=== PATIENT | male | born 1940 | race Caucasian/White ===

== ENCOUNTER 2017-12-07 09:00 | Inpatient (IN) | payer MEDICARE ==
[2017-12-07 11:49] LABS: Hemoglobin 14.7 g/dL (14.0-18.0); Mean Corpuscular HGB CONC 33.4 g/dL (32.0-36.0); Mean Corpuscular Volume 95.7 fl (80.0-94.0); Mean Platelet Volume 6.2 fL (7.4-10.4); Platelet Count 242 thou/uL (130-400); RBC Distribution Width 11.7 % (11.5-14.5); Red Blood Cell (RBC) Count 4.59 mill/uL (4.70-6.10); White Blood Cell (WBC) Count 8.7 thou/uL (4.8-10.8)
[2017-12-07 12:26] LABS: Anion Gap 15 mmol/L (10-20); BUN (Urea Nitrogen) 17 mg/dL (8.4-25.7); Calc. Creatinine Clearance 0 mL/min (70-130); Calcium 10.3 mg/dL (7.8-10.44); Carbon Dioxide 25 mmol/L (23-31); Chloride 101 mmol/L (98-107); Estimated GFR-MDRD 62; Glucose 131 mg/dL (83-110); Potassium 5.1 mmol/L (3.5-5.1); Sodium 136 mmol/L (136-145)
[2017-12-08] MEDS ORDERED: Albumin 5% 500 ML ONE (06:26)
[2017-12-08] MEDS ORDERED: CEFAZOLIN/Water 2 GM/20 ML SYRINGE ONE (06:27)
[2017-12-08] MEDS ORDERED: Midazolam HCl 5 mg/5 ml Vial ONE (06:30)
[2017-12-08] MEDS ORDERED: Dexmedetomidine 200 MCG/2 ML VIAL ONE (06:30)
[2017-12-08] MEDS ORDERED: Heparin 10,000 UNITS/1 ML VIAL 30,000 UNITS in Sodium Chloride 0.9% 1,000 ML FS SCH (06:30)
[2017-12-08] MEDS ORDERED: Fentanyl 100 MCG/2 ML VIAL ONE (06:30)
[2017-12-08] MEDS ORDERED: Vecuronium 10 MG VIAL ONE ×2 (06:30→15:09)
[2017-12-08] MEDS ORDERED: Insulin Regular 300 UNITS/3 ML VIAL ONE (09:09)
[2017-12-08] MEDS: Sodium Chloride 0.45% 1,000 ML IV SCH (12:00)
[2017-12-08 12:21] LABS: Actual Bicarbonate (HCO3a) 21.4 mEq/L (22-26); Base Excess (BEa) -4.6 mEq/L (0 (+/-) 2.5); CO2 Tension 42.7 mmHg (35.0-45.0); Calcium, Ionized 1.1 mmol/L (1.12-1.30); Hematocrit-ABG 34.6 % (42.0-52.0); Hemoglobin (Hb) 11.9 g/dL (14.0-18.0); O2 Tension (PaO2) 129.1 mmHg (80.0-100.0); pH, Arterial 7.32 (7.35-7.45)
[2017-12-08 12:22] LABS: ALV-art Gradient 174.025 (0-20); Puncture Site ALINE
[2017-12-08] MEDS ORDERED: Nitroglycerin 50 MG/250 ML BOT 250 ML IVPB PRN (12:24)
[2017-12-08] MEDS ORDERED: Morphine 4 MG/ML VIAL SLOW IVP PRN (12:24)
[2017-12-08] MEDS ORDERED: Promethazine HCl 25 MG/ML VIAL IM PRN (12:24)
[2017-12-08] MEDS ORDERED: Guaifenesin DM 100-10/5 ML UDCUP PO PRN (12:24)
[2017-12-08] MEDS ORDERED: Acetaminophen 325 MG TAB PO PRN (12:24)
[2017-12-08] MEDS ORDERED: Hetastarch 6% 500 ML 500 ML IVPB PRN (12:24)
[2017-12-08] MEDS ORDERED: Post-Op Insulin Drip Protocol IVPB ONE (12:24)
[2017-12-08] MEDS ORDERED: Norepinephrine 8 MG/0.9% NS 250 ML IVPB PRN (12:24)
[2017-12-08] MEDS ORDERED: Mag-Al 1200 mg/1200 mg/30 ML UDCUP PO PRN (12:24)
[2017-12-08] MEDS ORDERED: Potassium Chloride 20 MEQ/100 ML PREMIX BAG IVPB PRN (12:24)
[2017-12-08] MEDS ORDERED: Bisacodyl 10 MG SUPP PR PRN (12:24)
[2017-12-08] MEDS ORDERED: hydrALAZINE 20 MG/ML VIAL SLOW IVP PRN (12:24)
[2017-12-08] MEDS ORDERED: Bisacodyl 5 MG TAB PO PRN (12:24)
[2017-12-08] MEDS ORDERED: Fentanyl 100 MCG/2 ML VIAL SLOW IVP PRN (12:24)
[2017-12-08] MEDS ORDERED: Insulin Regular 300 UNITS/3 ML VIAL SC PRN (12:47)
[2017-12-08] MEDS ORDERED: Dextrose 5% in Water 1,000 ML IV PRN (12:47)
[2017-12-08] MEDS ORDERED: Dextrose 50% Abboject 50 ML SYRINGE SLOW IVP PRN (12:47)
[2017-12-08 12:51] LABS: #Eosinphils 0.1 thou/uL (0.0-0.7); #Lymphocytes 1.6 thou/uL (1.20-3.40); #Monocytes 0.7 thou/uL (0.11-0.59); #Neutrophils 13.2 thou/uL (1.40-6.50); %Eosinophils 0.5 % (0.0-10.0); %Lymphocytes 10.4 % (21.0-51.0); %Monocytes 4.6 % (0.0-10.0); %Neutrophils 84.6 % (42.0-75.0); Hemoglobin 11.9 g/dL (14.0-18.0); Mean Corpuscular HGB CONC 34.9 g/dL (32.0-36.0); Mean Corpuscular Hemoglobin 33.3 pg (27.0-31.0); Mean Corpuscular Volume 95.4 fl (80.0-94.0); Mean Platelet Volume 6.2 fL (7.4-10.4); Platelet Count 136 thou/uL (130-400); RBC Distribution Width 11.6 % (11.5-14.5); Red Blood Cell (RBC) Count 3.57 mill/uL (4.70-6.10); White Blood Cell (WBC) Count 15.6 thou/uL (4.8-10.8)
[2017-12-08 12:58] LABS: INR-International Normal Ratio 1.4; PTT 32.8 SEC (22.9-36.1)
[2017-12-08 13:07] LABS: Anion Gap 12 mmol/L (10-20); BUN (Urea Nitrogen) 14 mg/dL (8.4-25.7); Calc. Creatinine Clearance 98 mL/min (70-130); Calcium 7.8 mg/dL (7.8-10.44); Carbon Dioxide 19 mmol/L (23-31); Chloride 109 mmol/L (98-107); Estimated GFR-MDRD 81; Glucose 120 mg/dL (83-110); Potassium 3.7 mmol/L (3.5-5.1); Sodium 136 mmol/L (136-145)
--- NOTE | 2017-12-08 13:29 | RAD ---
SUPINE FRONTAL CHEST RADIOGRAPH: Date: 12-08-17 Comparison: 12-07-17 History: Following CABG. FINDINGS: There is a new endotracheal tube projecting over the tracheal air column in proper position. Nasogast jimena tube extends into left upper quadrant. There is a left sided chest tube and mediastinal drain in place. There is a right sided vascular catheter, distal tip overlying the cavoatrial junction. There is increased density in the left lung base suggesting volume loss. Right lung is clear. Midline sternotomy wires are noted. IMPRESSION: Lines and tubes as detailed above. Increased density is noted in the left base, likely on the basis o f volume loss. POS: [facility]
[2017-12-08 14:30] LABS: Actual Bicarbonate (HCO3a) 20.4 mEq/L (22-26); Base Excess (BEa) -4.7 mEq/L (0 (+/-) 2.5); Calcium, Ionized 1.1 mmol/L (1.12-1.30); Hematocrit-ABG 34.6 % (42.0-52.0); O2 Tension (PaO2) 134.6 mmHg (80.0-100.0); pH, Arterial 7.35 (7.35-7.45)
[2017-12-08 14:31] LABS: Puncture Site ALINE
[2017-12-08] MEDS: Fentanyl 100 MCG/2 ML VIAL SLOW IVP PRN ×2 (14:44→16:41)
--- NOTE | 2017-12-08 14:47 | OP ---
DATE OF PROCEDURE: 12/08/2017 PROCEDURE PERFORMED: Coronary artery bypass grafting x2 with left internal mammary artery to the distal LAD and reverse greater saphenous vein graft from the aorta to the first obtuse marginal. PREOPERATIVE DIAGNOSIS: Left main coronary artery disease with mildly decreased left ventricular function. POSTOPERATIVE DIAGNOSIS: Left main coronary artery disease with mildly decreased left ventricular function. SURGEON: Dr. Ronald Carrasco OPERATIONS SCHEDULER: Dr. Georgi Collins ANESTHESIA: General endotracheal anesthesia. INDICATIONS: The patient is a 77-year-old man with known coronary disease, having previously undergone stenting procedures in the distant past. He had a stress test that was positive and cardiac catheterization demonstrated about a 50% left main lesion with modest disease in his LAD and a very high grade lesion in his circumflex distal to the stent, very poor visualization of the posterolateral distribution vasculature with akinesis or severe hypokinesis in that distribution of ventriculography. He had mildly decreased LV function. He is now taken to the operating room for revascularization. FINDINGS: The pump time 60 minutes, cross clamp time 38 minutes. Good quality KEM and greater saphenous vein. The LAD distally where it was grafted was about a 1.5-2 mm vessel with diffuse plaque in the proximal and mid portion. The OM1 was about a 2-2.5 mm good quality vessel, 1 vessel was identified to the left of the great vein in the posterior descending or posterolateral distribution. It was about 1 mm poor quality vessel and no attempt was made to grafted it. The pericardium was closed. NARRATIVE REPORT: After informed consent was obtained, the patient was taken to the operating room and placed in supine position on the operating table. After the induction of general anesthesia, the patient's torso, groins and lower extremities were prepped and draped in sterile fashion. The greater saphenous vein was harvested from the left knee to groin using an endoscopic technique by my school health assistant. Meanwhile, I performed a median sternotomy. The left pleural space was entered and the left KEM was harvested as a pedicle from the level of the xiphoid, the left subclavian vein. Side branches controlled with small Hemoclips. The patient was heparinized. Mammary was ligated and divided distally. There was good flow through the mammary. Papaverine solution was instilled intraluminally. The mammary bed was inspected for hemostasis. The KEM retractors were placed with sternal retractor. The pericardium was opened and marsupialized. The aorta was palpated and was soft with double concentric pursestring of 2-0 Ethibond was placed just beyond the pericardial reflection and a single pursestring was placed in the right atrial appendage. Aortic and venous cannulae were inserted and secured by the pursestrings. The planes between the pulmonary artery and the aorta was developed. Cardiopulmonary bypass was instituted. The patient was systemically cooled. The aorta was again visually and manually inspected. The coronaries to be grafted were identified and the aortic crossclamp was applied and cardioplegia was administered through an aortic root needle. While that was infusing the left pleural drain was brought through a separate incision and secured to the skin with suture and a longitudinal slit was made in the pericardium anterior to the left phrenic nerve so the mammary pedicle could be passed. Attention was first turned to the circumflex system. The first obtuse marginal was the largest of those 3 marginals, it was exposed and opened with a [place] blade and Wilfrido scissors and reverse saphenous vein was anastomosed to it end-to-side with running Prolene suture and the anastomosis was tested by flushing cold saline down the graft. Attention was then turned to the posterior descending and posterolateral distribution. One identifiable vessel was explored. It was small and poor quality and it was opted not to attempt a graft. The LAD was then opened distally where it became a good quality vessel beyond plaquing. The left KEM was anastomosed with running 7-0 Prolene, and the mammary pedicle tacked to the epicardium. The aortic crossclamp was replaced with a partial occluding clamp and an aortotomy was made in the ascending aorta with a scalpel and punch incorporating the root needle site. The OM graft was trimmed to length and spatulated and anastomosed there end-to- side with running Prolene suture and the anastomosis marked with small Hemoclips. The vein graft was occluded. The partial occluding clamp removed. The vein graft was deaired and the bulldog removed from it. The anastomoses were inspected for hemostasis. The posterior pericardial drain was brought out through a separate incision and secured to skin with suture. Right atrial and right ventricular temporary epicardial pacing wires were placed. The patient was adequately rewarmed. He was then easily from cardiopulmonary bypass. The aortic and venous cannulae were removed and the pursestring secured. Protamine was administered when hemostasis was adequate. An anterior mediastinal drain was placed and pericardium was easily closed over with running Vicryl. Sternum was reapproximated with #7 stainless steel wires. Fascia closed over the wires and Vicryl and subcutaneous tissue was irrigated and reapproximated and skin was closed with Vicryl subcuticular stitch. The wounds were dressed and the patient taken to the Intensive Care Unit in stable condition. DARRELL
[2017-12-08] MEDS ORDERED: Thrombin 5000 UNITS/5 ML VIAL ONE (15:09)
[2017-12-08] MEDS ORDERED: Magnesium 5 GM/10 ML VIAL ONE (15:09)
[2017-12-08] MEDS ORDERED: Calcium Chloride 1 GM/10 ML Abboject SYRINGE ONE (15:09)
[2017-12-08] MEDS ORDERED: Papaverine 60 MG/2 ML VIAL ONE (15:09)
[2017-12-08] MEDS ORDERED: Aminocaproic Acid 5 GM/20 ML VIAL ONE (15:09)
[2017-12-08] MEDS ORDERED: Lidocaine 1% PF 5 ML VIAL ONE (15:09)
[2017-12-08] MEDS ORDERED: ePHEDrine/0.9% NaCl/PF SYRINGE 50 mg/10 ml ONE (15:09)
[2017-12-08] MEDS ORDERED: Protamine Sulfate 250 MG/25 ML VIAL ONE (15:09)
[2017-12-08] MEDS ORDERED: Mannitol 12.5 GM/50 ML ONE (15:09)
[2017-12-08] MEDS ORDERED: Propofol 200 MG/20 ML VIAL ONE (15:09)
[2017-12-08] MEDS ORDERED: Heparin 5,000 UNITS/ML VIAL ONE (15:09)
[2017-12-08] MEDS ORDERED: Cardioplegic Soln 1,000 ML BAG ONE (15:09)
[2017-12-08] MEDS ORDERED: Nitroglycerin 50 MG/250 ML BOT ONE (15:09)
[2017-12-08] MEDS ORDERED: Lidocaine 2% PF 100 mg/5 ml Syringe ONE (15:09)
[2017-12-08] MEDS ORDERED: PHENYLEPHRINE-NS 100 MCG/ML 10 ML SYRINGE ONE (15:09)
[2017-12-08] MEDS ORDERED: Potassium Chloride 60 MEQ/30 ML VIAL ONE (15:09)
[2017-12-08] MEDS ORDERED: Heparin 30,000 units/30 ml VIAL ONE (15:09)
[2017-12-08] MEDS ORDERED: Sodium Bicarb 50 MEQ/50 ML Abboject 8.4% SYRINGE ONE (15:09)
[2017-12-08] MEDS: Ondansetron HCl/PF 4 MG/2 ML Vial IVP PRN (15:15)
[2017-12-08] MEDS: HYDROcodone/Acetaminophen 5/325 mg Tablet PO PRN ×2 (15:23→19:41)
[2017-12-08] MEDS ORDERED: Ketorolac Tromethamine 30 MG/ML VIAL IVP SCH (16:45)
--- NOTE | 2017-12-08 18:04 | PDOC.CTH ---
Cardiology Progress Note - Subjective Pt. had CABG earlier today. He is now in CCU and extubated. He complains of left thoracic pain and has a chest tube in the left thorax. He denies any other symptoms. - Objective Vital Signs Temp Pulse Resp BP Pulse Ox 12/08/17 16:00 97 12/08/17 14:33 86 19 99 12/08/17 14:00 23 H 12/08/17 12:40 76 133/63 12/08/17 12:10 97.2 F L 76 14 100 12/08/17 12:00 14 Weight 227 lb 11.8 oz 12/07/17 12/08/17 12/09/17 06:59 06:59 06:59 Intake Total 275 Output Total 1470 Balance -1195 - Physical Examination General/Neuro: alert & oriented x3 Neck: no JVD present Lungs: CTA Heart: RRR Abdomen: no HSM, NT/ND - Labs Result Diagrams: 12/08/17 12:00 12/08/17 12:00 - Assessment/Plan 1. CAD: s/p CABG.Doing well. We will continue to follow him with you. Review of Systems - Review of Systems Respiratory: reports: other (pain in the left lateral chest.) Cardiac (ROS): reports: no symptoms reported ABD/GI: reports: no symptoms reported Musculoskeletal: reports: no symptoms reported Neurological: reports: no symptoms reported
[2017-12-08 18:53] LABS: Hemoglobin 11.6 g/dL (14.0-18.0)
[2017-12-08 19:07] LABS: Potassium 4.8 mmol/L (3.5-5.1)
[2017-12-08] MEDS ORDERED: Famotidine/PF 20 mg/2ml Vial SLOW IVP SCH (21:00)
[2017-12-09 05:12] LABS: #Lymphocytes 1.9 thou/uL (1.20-3.40); #Monocytes 1.1 thou/uL (0.11-0.59); #Neutrophils 7.7 thou/uL (1.40-6.50); %Eosinophils 0.3 % (0.0-10.0); %Monocytes 10.2 % (0.0-10.0); %Neutrophils 71.5 % (42.0-75.0); Hemoglobin 10.9 g/dL (14.0-18.0); Mean Corpuscular HGB CONC 33.9 g/dL (32.0-36.0); Mean Corpuscular Hemoglobin 32.7 pg (27.0-31.0); Mean Corpuscular Volume 96.5 fl (80.0-94.0); Mean Platelet Volume 6.1 fL (7.4-10.4); Platelet Count 153 thou/uL (130-400); RBC Distribution Width 11.7 % (11.5-14.5); Red Blood Cell (RBC) Count 3.33 mill/uL (4.70-6.10); White Blood Cell (WBC) Count 10.7 thou/uL (4.8-10.8)
[2017-12-09 05:24] LABS: Anion Gap 10 mmol/L (10-20); BUN (Urea Nitrogen) 21 mg/dL (8.4-25.7); Calc. Creatinine Clearance 81 mL/min (70-130); Calcium 7.9 mg/dL (7.8-10.44); Carbon Dioxide 23 mmol/L (23-31); Chloride 107 mmol/L (98-107); Estimated GFR-MDRD 65; Glucose 109 mg/dL (83-110); Potassium 4.2 mmol/L (3.5-5.1); Sodium 136 mmol/L (136-145)
[2017-12-09] MEDS: HYDROcodone/Acetaminophen 5/325 mg Tablet PO PRN ×2 (07:54→12:24)
[2017-12-09] MEDS ORDERED: Furosemide 40 MG/4 ML VIAL SLOW IVP SCH (08:02)
--- NOTE | 2017-12-09 08:50 | PDOC.CTH ---
<Radha Galvez - Last Filed: 12/09/17 08:49> Cardiology Progress Note - Subjective The pt seen and examined. No overnight events. No cardiac complaints. He is up to chair now without any difficulties. - Objective Vital Signs Pulse Ox 12/09/17 02:38 95 Weight 224 lb 3.362 oz 12/08/17 12/09/17 12/10/17 06:59 06:59 06:59 Intake Total 1788 Output Total 2245 80 Balance -457 -80 - Physical Examination General/Neuro: alert & oriented x3 Neck: no JVD present Lungs: CTA (diminished at bases) Heart: RRR Abdomen: soft Extremities: other: (No edema; BLE ROLAND) - Telemetry Telemetry Rhythm: SR 80-90s - Labs Result Diagrams: 12/09/17 04:48 12/09/17 04:48 - Assessment/Plan 1. CAD with s/p CABG x2 to GORDON-distal LAD and reversed greater saph from Aorta- OM1 on 12/08/17; Stable, cont. monitor on tele 2. HTN - Start Metoprolol 12.5mg PO BID for CAD; cont. monitor 3. Hyperlipidemia - Restart Crestor 10mg PO at HS 4. Sleep Apnea - Cpap at HS MAR Reviewed Review of Systems - Review of Systems Constitutional: reports: no symptoms reported EENTM: reports: no symptoms reported Respiratory: reports: no symptoms reported Cardiac (ROS): reports: no symptoms reported ABD/GI: reports: no symptoms reported : reports: no symptoms reported <Mechelle Wolfe - Last Filed: 12/09/17 16:15> Cardiology Progress Note - Objective Vital Signs Temp Pulse Resp Pulse Ox 12/09/17 11:00 98.6 F 12/09/17 08:00 99.7 F H 86 15 94 L Admit Weight 214 lb Weight 224 lb 3.362 oz 12/08/17 12/09/17 12/10/17 06:59 06:59 06:59 Intake Total 1788 760 Output Total 2245 1430 Balance -457 -670 - Labs Result Diagrams: 12/09/17 04:48 12/09/17 04:48 - Assessment/Plan The pt. was seen and eval. by me. I agree with the above A/P by the NEUROLOGY TEACHER. He is sitting up in the chair today and has less chest discomfort from the left chest tube. Chest clear. RRR.
[2017-12-09] MEDS ORDERED: Aspirin 325 MG TAB PO SCH (09:00)
[2017-12-09] MEDS ORDERED: Fish Oil 1,000 MG CAP PO SCH ×2 (09:00→10:00)
[2017-12-09] MEDS ORDERED: Nitroglycerin 0.4 MG TAB (25 Tab Bottle) SL SCH (09:00)
--- NOTE | 2017-12-09 09:09 | RAD ---
FRONTAL VIEW CHEST: Date: 12/09/17 COMPARISON: Previous day. INDICATION: ICU patient, status post heart surgery, follow-up. FINDINGS: Left thoracostomy tube remains. Removal in the interim of endotracheal and enteric catheters. Right s ubclavian venous catheter persists. Persistent pleural and parenchymal density of the mid to inferior left hemithorax. Cardiomediastinal silhouette is similar appearing. IMPRESSION: 1. Interval extubation as above. 2. Persistent pleural and parenchymal densities of left hemithorax. Continued follow-up is recommend ed. POS: [facility]
[2017-12-09] MEDS: Ascorbic Acid 500 mg Chewable Tablet PO SCH (09:44)
[2017-12-09] MEDS: Multivit, Therapeutic 1 TAB PO SCH (09:44)
[2017-12-09] MEDS: Metoprolol Tartrate 25 MG TAB PO SCH ×2 (09:46→20:53)
[2017-12-09] MEDS: Rosuvastatin 10 MG TAB PO SCH (20:53)
[2017-12-09] MEDS: Ondansetron HCl/PF 4 MG/2 ML Vial IVP PRN (20:57)
[2017-12-09] MEDS ORDERED: Non-Formulary Item 1 EACH (Rosuvastatin Calcium [Rosuvastatin Calcium] 1 TAB) PO SCH (21:00)
[2017-12-10] MEDS: Sodium Chloride 0.45% 1,000 ML IV SCH (04:53)
[2017-12-10 05:12] LABS: #Eosinphils 0.1 thou/uL (0.0-0.7); #Lymphocytes 1.7 thou/uL (1.20-3.40); #Monocytes 1.1 thou/uL (0.11-0.59); #Neutrophils 9.6 thou/uL (1.40-6.50); %Basophils 0.1 % (0.0-1.0); %Eosinophils 0.7 % (0.0-10.0); %Lymphocytes 13.3 % (21.0-51.0); %Monocytes 9.1 % (0.0-10.0); %Neutrophils 76.8 % (42.0-75.0); Hemoglobin 11.1 g/dL (14.0-18.0); Mean Corpuscular HGB CONC 33.9 g/dL (32.0-36.0); Mean Corpuscular Hemoglobin 32.5 pg (27.0-31.0); Mean Corpuscular Volume 95.9 fl (80.0-94.0); Platelet Count 165 thou/uL (130-400); RBC Distribution Width 11.8 % (11.5-14.5); Red Blood Cell (RBC) Count 3.42 mill/uL (4.70-6.10); White Blood Cell (WBC) Count 12.5 thou/uL (4.8-10.8)
[2017-12-10 05:31] LABS: Anion Gap 10 mmol/L (10-20); BUN (Urea Nitrogen) 19 mg/dL (8.4-25.7); Calc. Creatinine Clearance 92 mL/min (70-130); Calcium 8.6 mg/dL (7.8-10.44); Carbon Dioxide 24 mmol/L (23-31); Chloride 101 mmol/L (98-107); Estimated GFR-MDRD 80; Glucose 109 mg/dL (83-110); Potassium 4.1 mmol/L (3.5-5.1); Sodium 131 mmol/L (136-145)
--- NOTE | 2017-12-10 07:36 | RAD ---
PORTABLE CHEST: Date: 12/10/17 PROVIDED CLINICAL HISTORY: Post open heart. FINDINGS: Comparison made with the study dated 12/09/17. Significant interval change from the prior examination is not apparent. IMPRESSION: As above. POS: [facility]
[2017-12-10] MEDS: Fish Oil 1,000 MG CAP PO SCH (09:29)
[2017-12-10] MEDS: Ascorbic Acid 500 mg Chewable Tablet PO SCH (09:29)
[2017-12-10] MEDS: Metoprolol Tartrate 25 MG TAB PO SCH ×2 (09:29→23:48)
[2017-12-10] MEDS: Multivit, Therapeutic 1 TAB PO SCH (09:30)
[2017-12-10] MEDS: HYDROcodone/Acetaminophen 5/325 mg Tablet PO PRN ×3 (09:34→23:53)
[2017-12-10] MEDS ORDERED: Ketorolac Tromethamine 30 MG/ML VIAL IVP SCH (12:00)
[2017-12-10] MEDS: Ketorolac Tromethamine 30 MG/ML VIAL ONE ×2 (12:15→12:22)
--- NOTE | 2017-12-10 14:34 | PDOC.CTH ---
<Radha Galvez - Last Filed: 12/10/17 14:33> Cardiology Progress Note - Subjective The pt seen and examined. No overnight events. No caridac complaints when he walked with PTs today - Objective Vital Signs Temp Pulse Pulse Pulse Resp BP BP 12/10/17 12:18 91 83 148/66 H 113/62 12/10/17 12:03 99.1 F 81 16 12/10/17 09:26 98.5 F 98 18 12/10/17 09:25 98.5 F 98 18 12/10/17 03:17 99.1 F 96 16 BP Pulse Ox Pulse Ox Pulse Ox 12/10/17 12:18 96 92 L 12/10/17 12:03 117/61 92 L 12/10/17 09:26 133/68 93 L 12/10/17 09:25 93 L 12/10/17 03:17 144/67 H 95 Admit Weight 214 lb Weight 215 lb 12.8 oz 12/09/17 12/10/17 12/11/17 06:59 06:59 06:59 Intake Total 1788 1012 Output Total 2245 2240 Balance -457 -1228 - Physical Examination General/Neuro: alert & oriented x3 Neck: no JVD present Lungs: CTA Heart: RRR Abdomen: soft Extremities: other: (on TEDs) - Telemetry Telemetry Rhythm: SR - Labs Result Diagrams: 12/10/17 04:45 12/10/17 04:45 - Assessment/Plan 1. CAD with s/p CABG x2 to GORDON-distal LAD and reversed greater saph from Aorta- OM1 on 12/08/17; Stable, cont. monitor on tele 2. HTN - Start Metoprolol 12.5mg PO BID for CAD; cont. monitor 3. Hyperlipidemia - Restart Crestor 10mg PO at HS 4. Sleep Apnea - Cpap at HS MAR Reviewed Review of Systems - Review of Systems Constitutional: reports: no symptoms reported EENTM: reports: no symptoms reported Respiratory: reports: no symptoms reported Cardiac (ROS): reports: no symptoms reported ABD/GI: reports: no symptoms reported <Mechelle Wolfe - Last Filed: 12/10/17 17:52> Cardiology Progress Note - Objective Vital Signs Temp Pulse Pulse Pulse Resp BP BP 12/10/17 15:38 97.9 F 84 16 12/10/17 14:45 100 83 135/86 120/59 L 12/10/17 12:18 91 83 148/66 H 113/62 12/10/17 12:03 99.1 F 81 16 12/10/17 09:26 98.5 F 98 18 12/10/17 09:25 98.5 F 98 18 BP Pulse Ox Pulse Ox Pulse Ox 12/10/17 15:38 123/66 93 L 12/10/17 14:45 98 90 L 12/10/17 12:18 96 92 L 12/10/17 12:03 117/61 92 L 12/10/17 09:26 133/68 93 L 12/10/17 09:25 93 L Admit Weight 214 lb Weight 215 lb 12.8 oz 12/09/17 12/10/17 12/11/17 06:59 06:59 06:59 Intake Total 1788 1012 Output Total 2245 2240 Balance -093 -1249 - Labs Result Diagrams: 12/10/17 04:45 12/10/17 04:45 - Assessment/Plan Pt. seen and eval. by me. I agree with the A/P by the LOGISTICS SYSTEM ENGINEER. The chest tubes are still in.He complains of right shoulder pain, worse while sitting. He is otherwise stable. Chest clear. RRR.
[2017-12-10] MEDS: Aspirin 325 MG TAB PO SCH (23:48)
[2017-12-10] MEDS: Rosuvastatin 10 MG TAB PO SCH (23:48)
[2017-12-11 05:25] LABS: #Eosinphils 0.3 thou/uL (0.0-0.7); #Lymphocytes 1.8 thou/uL (1.20-3.40); #Monocytes 1.3 thou/uL (0.11-0.59); #Neutrophils 7.4 thou/uL (1.40-6.50); %Basophils 0.1 % (0.0-1.0); %Eosinophils 2.8 % (0.0-10.0); %Lymphocytes 16.9 % (21.0-51.0); %Monocytes 11.8 % (0.0-10.0); %Neutrophils 68.3 % (42.0-75.0); Hemoglobin 10.9 g/dL (14.0-18.0); Mean Corpuscular Hemoglobin 32.7 pg (27.0-31.0); Mean Corpuscular Volume 96.1 fl (80.0-94.0); Mean Platelet Volume 6.4 fL (7.4-10.4); Platelet Count 172 thou/uL (130-400); RBC Distribution Width 11.7 % (11.5-14.5); Red Blood Cell (RBC) Count 3.33 mill/uL (4.70-6.10); White Blood Cell (WBC) Count 10.9 thou/uL (4.8-10.8)
[2017-12-11 05:34] LABS: Anion Gap 11 mmol/L (10-20); BUN (Urea Nitrogen) 21 mg/dL (8.4-25.7); Calc. Creatinine Clearance 83 mL/min (70-130); Calcium 8.9 mg/dL (7.8-10.44); Carbon Dioxide 25 mmol/L (23-31); Chloride 100 mmol/L (98-107); Estimated GFR-MDRD 71; Glucose 119 mg/dL (83-110); Potassium 3.9 mmol/L (3.5-5.1); Sodium 132 mmol/L (136-145)
--- NOTE | 2017-12-11 08:04 | RAD ---
FRONTAL RADIOGRAPH CHEST: DATE: 12/11/17. COMPARISON: 12/10/17. HISTORY: Status post open heart surgery. FINDINGS: The right vascular catheter and left chest tube present on the prior examination has been removed. The patient is rotated to the right. Midline sternotomy wires are noted. No pneumothorax or pleural fluid. No focal consolidation or alveolar edema. Mild pulmonary vascular congestion, unchanged. IMPRESSION: No focal consolidation or alveolar edema. POS: [facility]
[2017-12-11] MEDS: HYDROcodone/Acetaminophen 5/325 mg Tablet PO PRN ×3 (08:46→18:38)
[2017-12-11] MEDS: Ascorbic Acid 500 mg Chewable Tablet PO SCH (08:47)
[2017-12-11] MEDS: Fish Oil 1,000 MG CAP PO SCH (08:47)
[2017-12-11] MEDS: Lisinopril 10 MG TAB PO SCH (08:48)
[2017-12-11] MEDS: Multivit, Therapeutic 1 TAB PO SCH (08:48)
[2017-12-11] MEDS: Metoprolol Tartrate 25 MG TAB PO SCH ×2 (08:48→22:16)
--- NOTE | 2017-12-11 11:18 | PDOC.CTH ---
<Radha Galvez - Last Filed: 12/11/17 11:16> Cardiology Progress Note - Subjective The Pt. seen and examined. No overnight events. No cardiac complaints. He complains of right shoulder pain, worse while sitting. He is otherwise stable. - Objective Vital Signs Temp Pulse Resp BP BP Pulse Ox 12/11/17 11:10 97.8 F 93 16 134/70 92 L 12/11/17 08:48 133/63 12/11/17 08:43 98.0 F 86 18 131/69 95 12/11/17 04:00 97.6 F 90 18 148/75 H 92 L 12/11/17 00:00 98.0 F 92 20 135/70 94 L Admit Weight 214 lb Weight 215 lb 12.8 oz 12/10/17 12/11/17 12/12/17 06:59 06:59 06:59 Intake Total 1012 720 Output Total 2240 405 Balance -1228 315 - Physical Examination General/Neuro: alert & oriented x3 Neck: no JVD present Lungs: CTA Heart: RRR Abdomen: soft Extremities: other: (on TEDs) - Telemetry Telemetry Rhythm: SR 90s - Labs Result Diagrams: 12/11/17 05:08 12/11/17 05:08 - Assessment/Plan 1. CAD with s/p CABG x2 to GORDON-distal LAD and reversed greater saph from Aorta- OM1 on 12/08/17; Stable; CT was d/eced today; cont. monitor on tele 2. HTN - stable with Lisinopril and Metoprolol; cont. monitor 3. Hyperlipidemia - Restart Crestor 10mg PO at HS 4. Sleep Apnea - Cpap at HS MAR Reviewed Review of Systems - Review of Systems Constitutional: reports: no symptoms reported EENTM: reports: no symptoms reported Respiratory: reports: no symptoms reported Cardiac (ROS): reports: no symptoms reported ABD/GI: reports: no symptoms reported : reports: no symptoms reported Musculoskeletal: reports: see HPI <Mechelle Wolfe - Last Filed: 12/11/17 15:17> Cardiology Progress Note - Objective Vital Signs Temp Pulse Pulse Pulse Resp BP BP 12/11/17 11:10 97.8 F 93 16 12/11/17 08:48 133/63 12/11/17 08:46 97 88 155/68 H 12/11/17 08:43 97.8 F 93 16 12/11/17 04:00 97.6 F 90 18 BP BP Pulse Ox Pulse Ox Pulse Ox 12/11/17 11:10 134/70 92 L 12/11/17 08:48 12/11/17 08:46 131/69 96 97 12/11/17 08:43 131/69 96 12/11/17 04:00 148/75 H 92 L Admit Weight 214 lb Weight 215 lb 12.8 oz 12/10/17 12/11/17 12/12/17 06:59 06:59 06:59 Intake Total 1012 720 Output Total 2240 405 Balance -1228 315 - Labs Result Diagrams: 12/11/17 05:08 12/11/17 05:08 - Assessment/Plan pt. seen and eval. by me. I agree with the A/P by the SERVICE DISPATCHER. He is doing well s/p CABG. , ambulating in the halls. No cardiac complaints. Chest clear. RRR.
[2017-12-11 13:35] VITALS: BMI 37.0
[2017-12-11] MEDS: Aspirin 325 MG TAB PO SCH (22:16)
[2017-12-11] MEDS: Rosuvastatin 10 MG TAB PO SCH (22:16)
[2017-12-12 05:15] LABS: Anion Gap 13 mmol/L (10-20); BUN (Urea Nitrogen) 12 mg/dL (8.4-25.7); Calc. Creatinine Clearance 82 mL/min (70-130); Calcium 9.2 mg/dL (7.8-10.44); Carbon Dioxide 21 mmol/L (23-31); Chloride 106 mmol/L (98-107); Estimated GFR-MDRD 70; Glucose 152 mg/dL (83-110); Potassium 3.1 mmol/L (3.5-5.1); Sodium 137 mmol/L (136-145)
[2017-12-12 05:43] LABS: #Eosinphils 0.4 thou/uL (0.0-0.7); #Lymphocytes 1.9 thou/uL (1.20-3.40); #Monocytes 1.1 thou/uL (0.11-0.59); #Neutrophils 5.2 thou/uL (1.40-6.50); %Basophils 0.3 % (0.0-1.0); %Eosinophils 4.2 % (0.0-10.0); %Lymphocytes 21.8 % (21.0-51.0); %Monocytes 13.2 % (0.0-10.0); %Neutrophils 60.5 % (42.0-75.0); Hemoglobin 10.3 g/dL (14.0-18.0); Mean Corpuscular Hemoglobin 32.7 pg (27.0-31.0); Mean Corpuscular Volume 96.1 fl (80.0-94.0); Mean Platelet Volume 5.9 fL (7.4-10.4); Platelet Count 210 thou/uL (130-400); RBC Distribution Width 11.6 % (11.5-14.5); Red Blood Cell (RBC) Count 3.15 mill/uL (4.70-6.10); White Blood Cell (WBC) Count 8.5 thou/uL (4.8-10.8)
[2017-12-12] MEDS: Multivit, Therapeutic 1 TAB PO SCH (09:44)
[2017-12-12] MEDS: Metoprolol Tartrate 25 MG TAB PO SCH (09:44)
[2017-12-12] MEDS: Fish Oil 1,000 MG CAP PO SCH (09:44)
[2017-12-12] MEDS: Lisinopril 10 MG TAB PO SCH (09:44)
[2017-12-12] MEDS: Ascorbic Acid 500 mg Chewable Tablet PO SCH (09:44)
[2017-12-12 11:05] VITALS: TEMP 98.8
[2017-12-12 12:30] VITALS: BP 167/77
--- NOTE | 2017-12-12 17:12 | DIS ---
DATE OF ADMISSION: 12/08/2017 DATE OF DISCHARGE: 12/12/2017 DIAGNOSES: 1. Coronary artery disease. 2. Hypertension. 3. History of diverticulosis. 4. History of carotid stenosis. 5. Obstructive sleep apnea. 6. Dyslipidemia. PROCEDURES PERFORMED: 1. Coronary artery bypass grafting x2 - one left internal mammary artery to left anterior descending . 2. Reversed saphenous vein to OM1. DESCRIPTION OF HOSPITAL STAY: Mr. Guaman is a 77-year-old gentleman who is electively admitted for c oronary bypass grafting on 12/08. He has done well postoperatively. He has had no arrhythmias, bein g discharged to home in good condition to follow up with Dr. Carrasco in [address] Wolfe in a month. DISCHARGE MEDICATIONS: Include; 1. Aspirin 325 mg q. day. 2. Lisinopril 10 mg q. day. 3. Lopressor 12.5 mg b.i.d. 4. Fish oil 1 q. day. 5. Rosuvastatin 10 mg at bedtime and myriad of vitamins.
[2017-12-17 10:25] LABS: Actual Bicarbonate (HCO3a) 23.1 mEq/L (22-26); Analyzer IN Cardio OR; Base Excess (BEa) -1.3 mEq/L (0 (+/-) 2.5); Calcium, Ionized 1.2 mmol/L (1.12-1.30); Hematocrit-ABG 41.7 % (42.0-52.0); Hemoglobin (Hb) 14.3 g/dL (14.0-18.0); O2 Tension (PaO2) 356.5 mmHg (80.0-100.0); Puncture Site ALINE
[2017-12-17 10:31] LABS: Actual Bicarbonate (HCO3a) 21.7 mEq/L (22-26); Base Excess (BEa) -3.1 mEq/L (0 (+/-) 2.5); Hematocrit-ABG 39.5 % (42.0-52.0); Hemoglobin (Hb) 13.3 g/dL (14.0-18.0); O2 Tension (PaO2) 380.3 mmHg (80.0-100.0); pH, Arterial 7.37 (7.35-7.45)
[2017-12-17 10:32] LABS: Analyzer IN Cardio OR; Calcium, Ionized 1.1 mmol/L (1.12-1.30); Puncture Site ALINE
[2017-12-17 10:33] LABS: CO2 Tension 37.8 mmHg (35.0-45.0)
[2017-12-17 10:36] LABS: Actual Bicarbonate (HCO3a) 22.9 mEq/L (22-26); Base Excess (BEa) -1.7 mEq/L (0 (+/-) 2.5); Hematocrit-ABG 29.2 % (42.0-52.0); Hemoglobin (Hb) 10.1 g/dL (14.0-18.0); O2 Tension (PaO2) 511.5 mmHg (80.0-100.0)
[2017-12-17 10:37] LABS: Analyzer IN Cardio OR; Puncture Site ALINE
[2017-12-17 10:37] LABS: pH, Arterial 7.35 (7.35-7.45)
[2017-12-17 10:38] LABS: Actual Bicarbonate (HCO3a) 23.5 mEq/L (22-26); Analyzer IN Cardio OR; Base Excess (BEa) -2.1 mEq/L (0 (+/-) 2.5); CO2 Tension 43.5 mmHg (35.0-45.0); Hematocrit-ABG 27.8 % (42.0-52.0); Hemoglobin (Hb) 9.3 g/dL (14.0-18.0); O2 Tension (PaO2) 430.1 mmHg (80.0-100.0); Puncture Site ALINE
[2017-12-17 10:41] LABS: Actual Bicarbonate (HCO3a) 22.9 mEq/L (22-26); Base Excess (BEa) -2.4 mEq/L (0 (+/-) 2.5); CO2 Tension 41.7 mmHg (35.0-45.0); Hematocrit-ABG 28.3 % (42.0-52.0); Hemoglobin (Hb) 9.9 g/dL (14.0-18.0); pH, Arterial 7.36 (7.35-7.45)
[2017-12-17 10:42] LABS: Analyzer IN Cardio OR; Calcium, Ionized 1.1 mmol/L (1.12-1.30); Puncture Site ALINE
== END 2017-12-12 14:15 | disposition home or self-care (01) | DRG 236 ==
LOC: SURG A 12-08 05:49 → CCU 12-08 10:16 → 2NO 12-09 14:51
PROVIDERS: ADMIT Thoracic Surgery (Cardiothoracic Vascular Surgery); ATTEND Thoracic Surgery (Cardiothoracic Vascular Surgery)
PROC: 0210099 Bypass Coronary Artery, One Artery from Left Internal Mammary with Autologous Venous Tissue, Open Approach (ICD-10-PCS; principal; 2017-12-08)
PROC: 021009W Bypass Coronary Artery, One Artery from Aorta with Autologous Venous Tissue, Open Approach (ICD-10-PCS; 2017-12-08)
PROC: 06BQ4ZZ Excision of Left Saphenous Vein, Percutaneous Endoscopic Approach (ICD-10-PCS; 2017-12-08)
PROC: 5A1221Z Performance of Cardiac Output, Continuous (ICD-10-PCS; 2017-12-08)
PROC: 3E033GC Introduction of Other Therapeutic Substance into Peripheral Vein, Percutaneous Approach (ICD-10-PCS; 2017-12-08)
DX: I25.10 Atherosclerotic heart disease of native coronary artery without angina pectoris (principal); I65.8 Occlusion and stenosis of other precerebral arteries; E78.2 Mixed hyperlipidemia; G47.33 Obstructive sleep apnea (adult) (pediatric); I10 Essential (primary) hypertension; Z87.19 Personal history of other diseases of the digestive system; Z85.828 Personal history of other malignant neoplasm of skin; Z88.8 Allergy status to other drugs, medicaments and biological substances; Z83.3 Family history of diabetes mellitus; Z82.49 Family history of ischemic heart disease and other diseases of the circulatory system; Z80.1 Family history of malignant neoplasm of trachea, bronchus and lung; Z80.3 Family history of malignant neoplasm of breast
CPT/HCPCS: 36416; 36430; 71045; 71046; 80048; 82805; 85025; 85027; 85610; 85730; 86850; 86900; 86901; 93005; 93010; 93798; 94002; 94150; A4216; J1642; J1644; J1815; J1885; J1940; J2001; J2150; J2250; J2405; J2440; J2704; J2720; J3010; J3370; J3475; J3480; J7050; P9045; S0017; S0028

== ENCOUNTER 2017-12-07 09:38 | Outpatient (CLI) | payer MEDICARE ==
--- NOTE | 2017-12-07 11:17 | RAD ---
CHEST TWO VIEWS: History: Pre op. Comparison: None. FINDINGS: Lungs are clear. No pneumothorax or effusion. Cardiac silhouette and mediastinal contours within norm al limits. IMPRESSION: No acute intrathoracic abnormality. POS: [facility]
--- NOTE | 2018-01-01 16:28 | EKG ---
Test Reason : Blood Pressure : / mmHG Vent. Rate : 054 BPM Atrial Rate : 054 BPM P-R Int : 260 ms QRS Dur : 096 ms QT Int : 404 ms P-R-T Axes : 062 096 050 degrees QTc Int : 383 ms Sinus bradycardia with 1st degree A-V block Rightward axis Borderline ECG When compared with ECG of 03-APR-2010 06:51, No significant change was found Confirmed by DR. Aracely RANDALL ([id number]) on 01/01/2018 4:28:20 PM Referred By: JAMAAL Confirmed By:DR. Aracely RANDALL
== END 2017-12-07 09:39 | disposition home or self-care (01) ==
LOC: LABBT 09:38
PROVIDERS: ATTEND Thoracic Surgery (Cardiothoracic Vascular Surgery)
DX: Z01.818 Encounter for other preprocedural examination (principal); I25.10 Atherosclerotic heart disease of native coronary artery without angina pectoris
CPT/HCPCS: 71046; 80048; 85027; 85610; 86850; 86900; 86901; 93005; 93010

== ENCOUNTER 2023-07-08 06:20 | Day surgery (SDC) | payer MEDICARE, OTHER ==
[2023-07-07 12:50] VITALS: BMI 29.9
[2023-07-08] MEDS ORDERED: Midazolam HCl 2 mg/2 ml Vial ONE ×2 (06:34→08:28)
[2023-07-08] MEDS ORDERED: fentaNYL 50 mcg/mL 1 mL Vial ONE ×2 (06:34→08:28)
[2023-07-08] MEDS ORDERED: Heparin 10,000 UNITS/ 10 ML VIAL ONE ×2 (06:34→08:28)
[2023-07-08] MEDS ORDERED: Nitroglycerin 50 MG/250 ML BOT 0 ML ONE ×2 (06:35→08:28)
[2023-07-08] MEDS ORDERED: Lidocaine 1% (PF) 30 ML VIAL ONE ×2 (06:35→08:28)
[2023-07-08 07:34] LABS: #Basophils 0.1 thou/uL (0.0-0.2); #Eosinphils 0.2 thou/uL (0.0-0.7); #Monocytes 0.8 thou/uL (0.11-0.59); %Basophils 0.5 % (0.0-1.0); %Eosinophils 1.9 % (0.0-10.0); %Lymphocytes 43.7 % (21.0-51.0); %Monocytes 7.6 % (0.0-10.0); %Neutrophils 45.9 % (42.0-75.0); Hematocrit 43.7 % (42.0-52.0); Hemoglobin 14.6 g/dL (14.0-18.0); Mean Corpuscular HGB CONC 33.4 g/dL (32.0-36.0); Mean Corpuscular Hemoglobin 31.2 pg (27.0-31.0); Mean Corpuscular Volume 93.4 fl (78.0-98.0); Mean Platelet Volume 8.9 fL (7.4-10.4); Platelet Count 243 10x3/uL (130-400); RBC Distribution Width 12.6 % (11.5-14.5); Red Blood Cell (RBC) Count 4.68 mill/uL (4.70-6.10); White Blood Cell (WBC) Count 10.8 10x3/uL (4.8-10.8)
[2023-07-08 07:57] LABS: ALT (SGPT) 29 U/L (8-55); AST (SGOT) 24 U/L (5-34); Alkaline Phosphatase 83 U/L (40-110); Anion Gap 14 mmol/L (10-20); BUN (Urea Nitrogen) 17 mg/dL (8.4-25.7); Bilirubin, Total 0.8 mg/dL (0.2-1.2); Calc. Creatinine Clearance 55 mL/min (70-130); Calcium 10.3 mg/dL (7.8-10.44); Carbon Dioxide 22 mmol/L (23-31); Chloride 101 mmol/L (98-107); Estimated GFR 52; Globulin 3.2 g/dL (2.4-3.5); Glucose 140 mg/dL (83-110); Potassium 3.8 mmol/L (3.5-5.1); Protein, Total 8.2 g/dL (5.8-8.1); Sodium 133 mmol/L (136-145)
[2023-07-08] MEDS ORDERED: Atropine Sulfate 1 mg/10 ml Syringe ONE (09:38)
[2023-07-08] MEDS ORDERED: TICAGRELOR 90 MG TABLET ONE (09:41)
[2023-07-08] MEDS ORDERED: Lisinopril 10 MG TAB ONE (12:36)
== END 2023-07-08 21:05 | disposition home or self-care (01) ==
LOC: SDC 06:20
PROVIDERS: ATTEND Internal Medicine Cardiovascular Disease
PROC: 02U03JZ Supplement Coronary Artery, One Artery with Synthetic Substitute, Percutaneous Approach (ICD-10-PCS; principal; 2023-07-08)
DX: I25.10 Atherosclerotic heart disease of native coronary artery without angina pectoris (principal); E11.9 Type 2 diabetes mellitus without complications; I10 Essential (primary) hypertension; I73.9 Peripheral vascular disease, unspecified; R01.1 Cardiac murmur, unspecified; E78.2 Mixed hyperlipidemia; I35.8 Other nonrheumatic aortic valve disorders; Z79.899 Other long term (current) drug therapy; Z79.84 Long term (current) use of oral hypoglycemic drugs; Z98.61 Coronary angioplasty status; Z95.1 Presence of aortocoronary bypass graft
CPT/HCPCS: 71045; 80053; 85025; 85347 ×2; 93005 ×2; 93459; C1725; C1769 ×2; C1874; C1887; C9600; 36415; 92928; 93010; J0461; J1644; J2001; J2250; J3010